=== PATIENT | male | born 1960 | race Asian ===

== ENCOUNTER 2022-11-06 11:44 | Inpatient (IN) | payer OTHER ==
[~2022-11-06] VITALS: Ht 172.7 cm; Wt 65.8 kg
[2022-11-06 11:55] VITALS: BP 140/89; PULSE 75; RESP 18; TEMP 98.6; O2SAT 99
--- NOTE | 2022-11-06 12:30 | NUR ---
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 Patient states that he had an appendectomy done on October 30, [address] Solis. He states that he has been recovering well after surgery but noticed new formation of a blister at the surgical site yesterday with increased drainage. DENIES N/V/D; SKIN IS PINK/WARM/DRY; AAOX4 WITH EVEN AND STEADY GAIT; LUNGS CLEAR BL; HR EVEN AND REGULAR; PT DENIES ANY FEVER, CP, SOB, OR COUGH AT THIS TIME; PATIENT STATES PAIN OF 0/10 AT THIS TIME; VSS; PATIENT POSITIONED FOR COMFORT; HOB ELEVATED; BEDRAILS UP X2; BED DOWN. ER MD MADE AWARE OF PT STATUS. CALL LIGHT WITHIN REACH
[2022-11-06] MEDS ORDERED: NACL 0.9% 1,000 ML IV ONE (13:00)
[2022-11-06 13:47] LABS: BASOPHILS % (AUTO) 0.6 % (0.0-2.0); EOSINOPHILS # (AUTO) 0.1 K/uL (0-0.4); EOSINOPHILS % (AUTO) 1.7 % (0.0-4.0); HEMATOCRIT 41.8 % (36-52); LYMPHOCYTES # (AUTO) 1.4 K/uL (2.0-11.5); LYMPHOCYTES % (AUTO) 16.8 % (20.5-51.1); MEAN CORPUSCULAR HEMOGLOBIN 30 pg (27-31); MEAN CORPUSCULAR HGB CONC 34 g/dL (33-37); MEAN CORPUSCULAR VOLUME 89.9 fL (80-94); MONOCYTES # (AUTO) 0.7 K/uL (0.8-1.0); MONOCYTES % (AUTO) 8.5 % (1.7-9.3); NEUTROPHILS % (AUTO) 72.4 % (42.2-75.2); PLATELET COUNT (AUTO) 264 K/uL (140-450); RED BLOOD CELL COUNT(AUTO) 4.65 MIL/uL (4.20-6.10); RED CELL DISTRIBUTION WIDTH 13.6 % (11.6-13.7); WHITE BLOOD COUNT (AUTO) 8.3 K/uL (4.8-10.8)
[2022-11-06 13:58] LABS: ALBUMIN 3.8 g/dL (3.4-5.0); CARBON DIOXIDE 28.2 mmol/L (21-32); CREATININE 1.1 mg/dL (0.6-1.3); POTASSIUM 4.2 mmol/L (3.5-5.1); TOTAL BILIRUBIN 0.6 mg/dL (0.0-1.0)
[2022-11-06] MEDS ORDERED: PIPERACILLIN/TAZOBACTAM 3.375 GM in DEXTROSE 5% 50 ML IV ONE (14:30)
--- NOTE | 2022-11-06 14:30 | NUR ---
PATIENT AT RADIOLOGY FOR CT SCAN
[2022-11-06] MEDS ORDERED: PIPERACILLIN/TAZOBACTAM 3.375 GM VIAL IV ONE (14:39)
--- NOTE | 2022-11-06 14:40 | NUR ---
PATIENT RETURNED TO BED2 FROM CT SCAN IN WHEEL CHAIR
[2022-11-06] MEDS ORDERED: ONDANSETRON 4 MG/2 ML VIAL IVP PRN ×2 (16:00→22:20)
[2022-11-06] MEDS ORDERED: POTASSIUM CHLORIDE 10 MEQ TABER PO PRN (16:00)
[2022-11-06] MEDS ORDERED: LORazepam 1 MG TAB PO PRN (16:00)
[2022-11-06] MEDS ORDERED: ZOLPIDEM 5 MG TAB PO PRN (16:00)
[2022-11-06] MEDS ORDERED: KCL 20 MEQ IN 100 mL PREMIX 200 ML IV PRN (16:00)
[2022-11-06] MEDS ORDERED: NACL 0.9% 1,000 ML IV SCH (16:00)
[2022-11-06] MEDS ORDERED: ACETAMINOPHEN 325 MG TAB PO PRN (16:00)
[2022-11-06] MEDS ORDERED: HYDROcodone/APAP 5/325 MG 1 TAB TAB PO PRN (16:00)
[2022-11-06] MEDS ORDERED: MORPHINE SULFATE 4 MG/ML SYR IVP PRN (16:00)
[2022-11-06] MEDS ORDERED: MAG SULF 2000 MG/WATER PREMIX 50 ML IV PRN (16:00)
[2022-11-06] MEDS ORDERED: FINA5TAB5 PO (16:57)
[2022-11-06] MEDS ORDERED: cefTRIAXone 1,000 MG VIAL ONE (17:03)
--- NOTE | 2022-11-06 19:30 | NUR ---
ASSUMED CARE OF PT. PT RESTING WITH EYES CLOSED; VSS.
--- NOTE | 2022-11-06 20:44 | NUR ---
DR. ARAUJO AT BEDSIDE
[2022-11-06] MEDS ORDERED: metroNIDAZOLE 500 MG/NS PREMIX 100 ML IV SCH (21:00)
--- NOTE | 2022-11-06 21:05 | NUR ---
Patient will be admitted to care of [facility]. Admited to MED SURG. Will go to room 111A. Belongings list completed. Report to CANELO BILLINGS.
[2022-11-06] MEDS ORDERED: LIDOCAINE MPF 1% 10 ML ONE (21:10)
[2022-11-06] MEDS ORDERED: BUPIVACAINE-MPF/EPI 0.25% 10 ML VIAL INJ ONE (21:10)
--- NOTE | 2022-11-06 21:10 | NUR ---
PT TAKEN TO OR
[2022-11-06] MEDS ORDERED: fentaNYL citrate 0.05 MG/ML VIAL ONE ×2 (21:13→21:26)
[2022-11-06] MEDS ORDERED: ceFAZolin 1,000 MG VIAL ONE (21:18)
[2022-11-06] MEDS ORDERED: ONDANSETRON 4 MG/2 ML VIAL ONE ×2 (21:26→21:56)
[2022-11-06] MEDS ORDERED: SUCCINYLCHOLINE CHLORIDE 200 MG/10 ML VIAL IVP ONE ×2 (21:26→21:56)
[2022-11-06] MEDS ORDERED: PROPOFOL 200 MG/20 ML VIAL IV ONE ×2 (21:26→21:55)
[2022-11-06] MEDS ORDERED: SEVOFLURANE 250 ML BTL INH ONE (21:26)
[2022-11-06] MEDS ORDERED: METOCLOPRAMIDE 10 MG/2 ML INJ VIAL ONE (21:55)
[2022-11-06] MEDS ORDERED: KETOROLAC 30 MG/ML VIAL ONE (21:56)
[2022-11-06] MEDS ORDERED: hydrALAZINE 20 MG/ML VIAL IVP PRN (22:20)
[2022-11-06] MEDS ORDERED: LABETALOL 20 MG/4 ML VIAL IVP PRN (22:20)
[2022-11-06] MEDS ORDERED: HYDROmorphone 1 MG/ML AMP IVP PRN (22:20)
[2022-11-06 22:47] VITALS: PULSE 64; RESP 18; O2SAT 97
--- NOTE | 2022-11-06 22:47 | NUR ---
PT WAS ADMITTED TO [facility] FROM OR VIA [facility] WITH DIAGNOSIS OF WOUND INFECTION. PT WAS DONE A PROCEDURE OF I&D OF INFECTED ABDOMINAL WOUND. PT IS AOX4, MANDARIN SPEAKING, AMBULATORY, ABLE TO VERBALIZE NEEDS AND ABLE TO FOLLOW COMMANDS. PT IS ON ROOM AIR AND ON REGULAR DIET. PT HAS IV ON RIGHT AC GAUGE 20, RUNNING WITH LR AT 100ML/HR. PT HAS MIDLINE SUPRAPUBIC SURGICAL WOUND AND BLISTER ON LEFT BESIDE BELLY BUTTON AND WOUND BELOW IT DUE TO SHEILA REMOVAL. NO COMPLAIN OF PAIN AT THIS TIME. NO S/S OF RESPIRATORY DISTRESS NOTED. PT WAS ORIENTED TO ROOM/HOSPITAL, BED BUTTON AND CALL LIGHT. 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 ALL SAFETY MEASURES IMPLEMENTED. BED IN LOW POSITION AND BED WHEELS ON LOCK.
[2022-11-06] MEDS: LACTATED RINGERS 1,000 ML IV SCH (23:00)
--- NOTE | 2022-11-07 | NUR ---
PT IS ON SLEEP. CHEST RISE AND FALL SYMMETRICALLY NOTED. RESPIRATION IS EVEN AND UNLABORED. ALL SAFETY MEASURES IMPLEMENTED. BED IN LOW POSITION AND BED WHEELS ON LOCK.
--- NOTE | 2022-11-07 02:00 | NUR ---
CHECKED THE PT STILL ON SLEEP. CHEST RISE AND FALL SYMMETRICALLY NOTED. RESPIRATION IS EVEN AND UNLABORED. ALL SAFETY MEASURES IMPLEMENTED. BED IN LOW POSITION. BED WHEELS ON LOCK AND CALL LIGHT WITHIN REACH.
[2022-11-07 04:00] VITALS: BP 105/60; PULSE 61; RESP 18; TEMP 97.8; O2SAT 97
[2022-11-07 05:59] LABS: BASOPHILS % (AUTO) 0.4 % (0.0-2.0); EOSINOPHILS # (AUTO) 0.5 K/uL (0-0.4); EOSINOPHILS % (AUTO) 5.7 % (0.0-4.0); HEMATOCRIT 36.3 % (36-52); HEMOGLOBIN 12.1 g/dL (12.0-18.0); LYMPHOCYTES # (AUTO) 1.2 K/uL (2.0-11.5); LYMPHOCYTES % (AUTO) 15.6 % (20.5-51.1); MEAN CORPUSCULAR HEMOGLOBIN 30 pg (27-31); MEAN CORPUSCULAR HGB CONC 33 g/dL (33-37); MONOCYTES # (AUTO) 0.5 K/uL (0.8-1.0); MONOCYTES % (AUTO) 6.1 % (1.7-9.3); NEUTROPHILS # (AUTO) 5.8 K/uL (1.8-7.7); NEUTROPHILS % (AUTO) 72.2 % (42.2-75.2); PLATELET COUNT (AUTO) 246 K/uL (140-450); RED BLOOD CELL COUNT(AUTO) 4.03 MIL/uL (4.20-6.10); RED CELL DISTRIBUTION WIDTH 13.4 % (11.6-13.7)
--- NOTE | 2022-11-07 07:21 | NUR ---
receive the patient from the slot shift manager kathy Chino in rm 111A aox4 mandarin speaking with admitting diagnosis of infection the appendectomy site . probable discharge today . will continue to monitor
--- NOTE | 2022-11-07 07:35 | NUR ---
PT IS STABLE. ENDORSED PT TO MORNING SHIFT NURSE FOR CONTINUITY OF CARE.
[2022-11-07 08:00] VITALS: BP 110/55; PULSE 60; RESP 18; TEMP 97; O2SAT 95
[2022-11-07 08:06] VITALS: PULSE 68; RESP 20; O2SAT 98
[2022-11-07] MEDS: LACTATED RINGERS 1,000 ML IV SCH (08:41)
--- NOTE | 2022-11-07 09:07 | NUR ---
PATIENT HAS BEEN SCREENED AND CATEGORIZED LOW NUTRITION RISK. PATIENT WILL BE SEEN WITHIN 7 DAYS OF ADMISSION. 11/13/20[address] REVIEWED BY [address]HILASH ABRAHAM RD
--- NOTE | 2022-11-07 09:30 | NUR ---
Oh called re patient gave an update . will discharge the patient home . with wound care dressing change , pain medications . antibiotics
[2022-11-07 09:47] VITALS: BP 132/78; PULSE 68; RESP 20; TEMP 97.1
--- NOTE | 2022-11-07 11:00 | NUR ---
discontinue intravenous port , identification band . made discharge patient teaching re wound care dressing on appendectomy site infection . Md Solis will see the patient in one week . Gave the contact number to the daughter .Md Solis will prescribe antibiotics , pain medication which will be electronically transferred to pharmacy of their choice . Brought the patient to the lobby thru a wheelchair to a waiting private car with the daughter in a stable condition
[2022-11-07] MEDS ORDERED: HYDR-5191 PO (12:34)
--- NOTE | 2022-11-07 15:35 | NUR ---
[employer] Roll Tender: Attempted to complete a social service assessment with the patient, however was advised that the patient discharged earlier today.
== END 2022-11-07 11:05 | disposition home or self-care (01) | DRG 711 ==
LOC: MED 11:44 → MMU 16:00 → MTU 17:22
PROVIDERS: ADMIT Internal Medicine; ATTEND Internal Medicine
PROC: 0W9F0ZZ Drainage of Abdominal Wall, Open Approach (ICD-10-PCS; principal; 2022-11-06 20:00)
DX: T81.49XA Infection following a procedure, other surgical site, initial encounter (principal); K91.873 Postprocedural seroma of a digestive system organ or structure following other procedure; I10 Essential (primary) hypertension; Z90.49 Acquired absence of other specified parts of digestive tract; Y83.8 Other surgical procedures as the cause of abnormal reaction of the patient, or of later complication, without mention of misadventure at the time of the procedure; S30.821A Blister (nonthermal) of abdominal wall, initial encounter; X58.XXXA Exposure to other specified factors, initial encounter; Y82.8 Other medical devices associated with adverse incidents; Y92.89 Other specified places as the place of occurrence of the external cause; Y93.89 Activity, other specified; Y99.8 Other external cause status
CPT/HCPCS: 36415; 80053; 85025; 85610; 85730; 87070; 87075; 87081; 87205; J0330; J0690; J0696; J1885; J2001; J2405; J2543; J2704; J2765; J3010; J3490; J7030; J7060; Q9967